=== PATIENT | female | born 1980 | race Caucasian/White ===

== ENCOUNTER 2022-03-07 21:13 | Emergency (ER) | payer OTHER ==
[2022-03-07] MEDS ORDERED: NORCO 5-325 TA1 EACH PO (22:37)
== END 2022-03-07 22:42 | disposition home or self-care (01) ==
LOC: FER 21:13
DX: S69.91XA Unspecified injury of right wrist, hand and finger(s), initial encounter (principal); Z28.310 Unvaccinated for COVID-19; W22.8XXA Striking against or struck by other objects, initial encounter; Y92.009 Unspecified place in unspecified non-institutional (private) residence as the place of occurrence of the external cause
CPT/HCPCS: 73130